=== PATIENT | male | born 1985 | race Caucasian/White ===

== ENCOUNTER 2017-12-08 20:38 | Emergency (ER) | payer OTHER ==
[2017-12-08] MEDS ORDERED: Acetaminophen 500 MG Tab PO ONE (20:53)
[2017-12-08] MEDS ORDERED: Ketorolac 60 MG/2 ML SDV IM ONE (21:37)
[2017-12-08] MEDS ORDERED: Ondansetron 4 MG Tab.DIS PO ONE (21:38)
--- NOTE | 2017-12-08 21:42 | EDM.PDOC ---
ED HPI GENERAL MEDICAL PROBLEM - General Chief Complaint: General Stated Complaint: 103 FEVER CRAMPS Time Seen by Provider: 12/08/17 20:52 Source of Information: Reports: Patient History Limitations: Reports: No Limitations - History of Present Illness INITIAL COMMENTS - FREE TEXT/NARRATIVE: influenza like illness; this is a 32 year old male presents to the ER via POV, reports was sick last Friday with flu, had nausea, vomiting, diarrhea, fully recovered, then went ice fishing on Friday with his friend was starting to feel sick with flu symptoms. Today woke up with abdomen not feeling right, has nausea, fever or 103.5 at home, body aches and muscle cramps. His started with flu like illness yesterday. Mr. 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 Onset: Today Duration: Getting Worse Location: Reports: Generalized Quality: Reports: Same as Previous Episode Severity: Moderate Improves with: Reports: None Worsens with: Reports: None Context: Reports: Sick Contact Associated Symptoms: Reports: Fever/Chills, Nausea/Vomiting, Weakness, Other ( bodyaches) generalized Pain Score (Numeric/FACES): 5 - Related Data Allergies Allergy/AdvReac Type Severity Reaction Status Date / Time flu vaccine Allergy Seizure Uncoded 12/08/17 20:56 Home Meds: Home Meds NK [No Known Home Meds] 12/08/17 [History] Past Medical History - Past Health History Medical/Surgical History: Denies Medical/Surgical History Social & Family History - Tobacco Use Smoking Status *Q: Never Smoker - Caffeine Use Caffeine Use: Reports: Coffee - Alcohol Use Days Per Week of Alcohol Use: 2 Number of Drinks Per Day: 6 Total Drinks Per Week: 12 - Recreational Drug Use Recreational Drug Use: No - Living Situation & Occupation Living situation: Reports: Occupation: Employed (lives with and two children age 3 and 5 years old.) ED ROS GENERAL - Review of Systems Review Of Systems: See Below Constitutional: Reports: Fever (102.1 in ER), Chills, Weakness, Fatigue HEENT: Reports: No Symptoms Respiratory: Reports: No Symptoms Cardiovascular: Reports: No Symptoms Endocrine: Reports: No Symptoms GI/Abdominal: Reports: Abdominal Pain (generalized abdomen pain), Nausea (cramps ) : Reports: No Symptoms Musculoskeletal: Reports: Muscle Pain, Muscle Stiffness Skin: Reports: No Symptoms Neurological: Reports: No Symptoms Psychiatric: Reports: No Symptoms Hematologic/Lymphatic: Reports: No Symptoms Immunologic: Reports: No Symptoms ED EXAM, GENERAL - Physical Exam Exam: See Below Exam Limited By: No Limitations General Appearance: Alert, WD/WN, Mild Distress Eye Exam: Bilateral Eye: Normal Inspection Ears: Normal External Exam, Normal Canal, Hearing Grossly Normal, Normal TMs Ear Exam: Bilateral Ear: Auricle Normal, Canal Normal, TM normal Nose: Normal Inspection, Normal Mucosa, No Blood Throat/Mouth: Normal Inspection, Normal Lips, Normal Teeth, Normal Gums, Normal Oropharynx, Normal Voice, No Airway Compromise Head: Atraumatic, Normocephalic Neck: Normal Inspection, Supple, Non-Tender, Full Range of Motion Respiratory/Chest: No Respiratory Distress, Lungs Clear, Normal Breath Sounds, No Accessory Muscle Use, Chest Non-Tender Cardiovascular: Normal Peripheral Pulses, Regular Rate, Rhythm, No Edema, No Gallop, No JVD, No Murmur, No Rub GI/Abdominal: Normal Bowel Sounds, Soft, Non-Tender, No Organomegaly, No Distention, No Abnormal Bruit, No Mass Back Exam: Normal Inspection, Full Range of Motion, NT Extremities: Normal Inspection, Normal Range of Motion, Non-Tender, Normal Capillary Refill, No Pedal Edema Neurological: Alert, Oriented, Normal Cognition, No Motor/Sensory Deficits Psychiatric: Normal Affect, Normal Mood Skin Exam: Warm, Dry, Intact, Normal Color, No Rash Lymphatic: No Adenopathy Course - Vital Signs Last Recorded V/S: Last Vital Signs Temp 38.9 C H 12/08/17 21:00 Pulse 112 H 12/08/17 21:00 Resp 16 12/08/17 21:00 BP 123/81 12/08/17 21:00 Pulse Ox 95 12/08/17 21:00 - Orders/Labs/Meds Orders: Active Orders 24 hr Category Date Time Status CULTURE STREP A CONFIRMATION [] Stat Lab 12/08/17 21:01 Results STREP SCRN A RAPID W CULT CONF [] Stat Lab 12/08/17 21:01 Results Meds: Medications Discontinued Medications Generic Name Dose Route Start Last Admin Trade Name Freq PRN Reason Stop Dose Admin Acetaminophen 1,000 mg 12/08/17 20:53 12/08/17 21:06 Tylenol Extra Strength PO 12/08/17 20:54 1,000 mg ONETIME ONE Administration Ketorolac Tromethamine 60 mg 12/08/17 21:37 12/08/17 21:44 Toradol IM 12/08/17 21:38 60 mg ONETIME ONE Administration Ondansetron HCl 4 mg 12/08/17 21:38 12/08/17 21:44 Zofran Odt PO 12/08/17 21:39 4 mg ONETIME ONE Administration - Re-Assessments/Exams Free Text/Narrative Re-Assessment/Exam: 12/08/17 22:05 influenza A and B negative, rapid strep screen negative will given Toradol 60 mg im and Zofran 4mg odt in ER declines IV fluids and further testing will discharge to home with Tamiflu and anti-emetic advise to rest, no work for 5 days or fever free x 24 hours return to ER or Clinic if not improved or sx worsen. Advise to have his and Children; have them call their Primary Care Providers in the am for follow up. Departure - Departure Time of Disposition: 22:15 Disposition: Home, Self-Care 01 Condition: Good Clinical Impression: Influenza-like illness - Discharge Information Instructions: Fever, Adult, [id number] Referrals: PCP,None [Primary Care Provider] - Forms: ED Department Discharge Care Plan Goals: Influenza Like Illness -given Toradol 60mg IM, Zofran 4 mg odt in ER Home medication -Tamiflu 75mg po bid x 5 days -phenergan 25mg po every 6 to 8 hours as needed for nausea -continue with Tylenol and Motrin as directed for pain or fever Advised no work for 5 days or until fever free x 24 hours Return to Clinic or ER if not improved or symptoms worsen. - Problem List & Annotations (1) Influenza-like illness SNOMED Code(s): 40816436 Code(s): R69 - ILLNESS, UNSPECIFIED Status: Acute Priority: High Current Visit: Yes - Problem List Review Problem List Initiated/Reviewed/Updated: Yes - My Orders Last 24 Hours: My Active Orders 12/08/17 21:01 CULTURE STREP A CONFIRMATION [RM] Stat STREP SCRN A RAPID W CULT CONF [] Stat - Assessment/Plan Last 24 Hours: My Active Orders 12/08/17 21:01 CULTURE STREP A CONFIRMATION [RM] Stat STREP SCRN A RAPID W CULT CONF [RM] Stat Plan: Influenza Like Illness -given Toradol 60mg IM, Zofran 4 mg odt in ER Home medication -Tamiflu 75mg po bid x 5 days -phenergan 25mg po every 6 to 8 hours as needed for nausea -continue with Tylenol and Motrin as directed for pain or fever Advised no work for 5 days or until fever free x 24 hours Return to Clinic or ER if not improved or symptoms worsen.
== END 2017-12-08 21:56 | disposition home or self-care (01) ==
LOC: JP.ED 20:38
DX: J11.1 Influenza due to unidentified influenza virus with other respiratory manifestations (principal); Z88.7 Allergy status to serum and vaccine
CPT/HCPCS: 87081; 87430; 87804; 96372; 99284; A9270; J1885; 99283